=== PATIENT | male | born 1955 | race Caucasian/White ===

== ENCOUNTER → 2017-10-27 | Emergency (ER) | payer MEDICAID ==
[~2017-10-27] VITALS: Ht 177.8 cm; Wt 73.6 kg
[~2017-10-27] MED LIST: BACI1PAC7 TP; PANT20TA3 PO; THI100T PO
[2017-10-27 02:36] VITALS: BP 121/69
== END | disposition home or self-care (01) ==
LOC: ER 01:35
DX: S61.502A Unspecified open wound of left wrist, initial encounter (principal); I10 Essential (primary) hypertension; Z86.14 Personal history of Methicillin resistant Staphylococcus aureus infection; Z60.2 Problems related to living alone; Z59.0 Homelessness; Z87.891 Personal history of nicotine dependence; Z56.0 Unemployment, unspecified; Z79.899 Other long term (current) drug therapy; X58.XXXA Exposure to other specified factors, initial encounter; Y93.89 Activity, other specified; Y92.89 Other specified places as the place of occurrence of the external cause; Y99.8 Other external cause status
CPT/HCPCS: 99284

== ENCOUNTER 2017-11-12 18:25 | Emergency (ER) | payer MEDICAID ==
[~2017-11-12] VITALS: Ht 179.1 cm; Wt 72.7 kg
[~2017-11-12 18:25] MED LIST changes: -BACI1PAC7 TP
[2017-11-12 21:33] VITALS: BP 127/83
[2017-11-12 22:09] LABS: BASOPHILS # (AUTO) 0.1 X10'3 (0-0.2); EOSINOPHILS # (AUTO) 0.2 X10'3 (0-0.9); EOSINOPHILS % (AUTO) 1.9 % (0-6); HEMATOCRIT 39.8 % (42.0-52.0); HEMOGLOBIN 13.7 g/dl (14.0-17.9); LYMPHOCYTES # (AUTO) 2.7 X10'3 (1.1-4.8); LYMPHOCYTES % (AUTO) 28.9 % (21-51); MEAN CORPUSCULAR HGB CONC 34.5 % (33.0-36.5); MEAN CORPUSCULAR VOLUME 95.6 FL (78-98); MEAN PLATELET VOLUME 6.9 FL (7.4-10.4); MONOCYTES % (AUTO) 10.5 % (2-12); NEUTROPHILS # (AUTO) 5.4 X10'3 (1.8-7.7); NEUTROPHILS % (AUTO) 57.7 % (42-75); PLATELET COUNT 281 X10'3 (140-440); RED BLOOD COUNT 4.16 X10'6 (4.70-6.10); RED CELL DISTRIBUTION WIDTH 13.3 % (11.5-14.5); WHITE BLOOD COUNT 9.4 X10'3 (4.5-11.0)
[2017-11-12 22:19] LABS: INR 0.9 INR; PARTIAL THROMBOPLASTIN TIME 28 SECONDS (22-32); PROTHROMBIN TIME 9.6 SECONDS (9.0-12.0)
[2017-11-12 22:23] LABS: ALANINE AMINOTRANSFERASE 25 U/L (12-78); ALBUMIN 3.1 G/DL (3.4-5.0); ALBUMIN/GLOBULIN RATIO 0.7 (1.1-1.5); ALKALINE PHOSPHATASE 101 IU/L (46-116); ANION GAP 13 (8-16); ASPARTATE AMINO TRANSFERASE 24 U/L (10-37); BILIRUBIN,TOTAL 0.3 MG/DL (0.1-1.0); BLOOD UREA NITROGEN 10 MG/DL (7-18); BUN/CREATININE RATIO 11.2 (5.4-32.0); CALCIUM 8.6 MG/DL (8.5-10.1); CHLORIDE 101 MMOL/L (99-107); CREATININE 0.89 MG/DL (0.60-1.10); ETHANOL 0.143 GM/DL (0.0-0.010); GLUCOSE 91 MG/DL (70-104); POTASSIUM 3.7 MMOL/L (3.5-5.1); SODIUM 137 MMOL/L (135-145); TOTAL CARBON DIOXIDE 23.1 MMOL/L (24-32); TOTAL PROTEIN 7.6 G/DL (6.4-8.2); eGFR 87 ML/MIN
== END 2017-11-12 23:22 | disposition home or self-care (01) ==
LOC: ER 18:25
DX: F10.129 Alcohol abuse with intoxication, unspecified (principal); Y90.9 Presence of alcohol in blood, level not specified; I10 Essential (primary) hypertension; F17.200 Nicotine dependence, unspecified, uncomplicated; Z79.899 Other long term (current) drug therapy; Z56.0 Unemployment, unspecified; Z59.0 Homelessness; Z60.2 Problems related to living alone
CPT/HCPCS: 36415; 70450; 71045; 80053; 80320; 85025; 85610; 85730; 93005; 99285

== ENCOUNTER 2017-12-11 14:43 | Emergency (ER) | payer MEDICAID ==
[~2017-12-11] VITALS: Ht 177.8 cm; Wt 72.7 kg
[2017-12-11] MEDS ORDERED: thiamine 100mg/ml 2ml inj. IV ONE (14:50)
[2017-12-11] MEDS ORDERED: normal saline 1000ML IV soln IV ONE (14:50)
[2017-12-11] MEDS ORDERED: folic acid 1mg/0.2ml inj IV ONE (14:50)
[2017-12-11 15:11] LABS: BASOPHILS # (AUTO) 0.1 X10'3 (0-0.2); BASOPHILS % (AUTO) 1.2 % (0-1); EOSINOPHILS # (AUTO) 0.1 X10'3 (0-0.9); HEMATOCRIT 44.8 % (42.0-52.0); HEMOGLOBIN 15.6 g/dl (14.0-17.9); LYMPHOCYTES # (AUTO) 2.6 X10'3 (1.1-4.8); LYMPHOCYTES % (AUTO) 31.7 % (21-51); MEAN CORPUSCULAR HEMOGLOBIN 33.5 PG (27.0-31.0); MEAN CORPUSCULAR HGB CONC 34.7 % (33.0-36.5); MEAN CORPUSCULAR VOLUME 96.4 FL (78-98); MEAN PLATELET VOLUME 7.3 FL (7.4-10.4); MONOCYTES # (AUTO) 0.5 X10'3 (0-0.9); MONOCYTES % (AUTO) 6.1 % (2-12); NEUTROPHILS # (AUTO) 4.9 X10'3 (1.8-7.7); PLATELET COUNT 254 X10'3 (140-440); RED BLOOD COUNT 4.65 X10'6 (4.70-6.10); RED CELL DISTRIBUTION WIDTH 13.6 % (11.5-14.5); WHITE BLOOD COUNT 8.2 X10'3 (4.5-11.0)
[2017-12-11 15:20] LABS: ALANINE AMINOTRANSFERASE 20 U/L (12-78); ALBUMIN 3.7 G/DL (3.4-5.0); ALBUMIN/GLOBULIN RATIO 0.8 (1.1-1.5); ALKALINE PHOSPHATASE 121 IU/L (46-116); ANION GAP 11 (8-16); ASPARTATE AMINO TRANSFERASE 26 U/L (10-37); BILIRUBIN,TOTAL 0.3 MG/DL (0.1-1.0); BLOOD UREA NITROGEN 8 MG/DL (7-18); BUN/CREATININE RATIO 9.5 (5.4-32.0); CALCIUM 8.6 MG/DL (8.5-10.1); CHLORIDE 104 MMOL/L (99-107); CREATININE 0.84 MG/DL (0.60-1.10); GLUCOSE 91 MG/DL (70-104); POTASSIUM 3.8 MMOL/L (3.5-5.1); SODIUM 141 MMOL/L (135-145); TOTAL PROTEIN 8.5 G/DL (6.4-8.2); eGFR > 90 ML/MIN
[2017-12-11 15:34] LABS: ETHANOL 0.322 GM/DL (0.0-0.010)
[2017-12-11 17:39] VITALS: BP 159/101
== END 2017-12-11 17:50 | disposition home or self-care (01) ==
LOC: ER 14:43
DX: F10.129 Alcohol abuse with intoxication, unspecified (principal); I10 Essential (primary) hypertension; Z86.14 Personal history of Methicillin resistant Staphylococcus aureus infection; Z60.2 Problems related to living alone; Z59.0 Homelessness; Z56.0 Unemployment, unspecified; Z79.899 Other long term (current) drug therapy; Y90.0 Blood alcohol level of less than 20 mg/100 ml
CPT/HCPCS: 36415; 80053; 80320; 85025; 96374; 96375; 99284; J3411; J3490; J7030

== ENCOUNTER 2018-02-28 18:31 | Inpatient (IN) | payer OTHER, MEDICAID ==
[~2018-02-28] VITALS: Ht 177.8 cm; Wt 75.6 kg
[~2018-02-28 18:31] MED LIST changes: +etomidate 2mg/ml inj. ONE; +rocuronium 10mg/ml inj IV ONE
[2018-02-28] MEDS ORDERED: LORazepam 2 mg/ml vial IV ONE ×2 (18:35→21:35)
[2018-02-28] MEDS ORDERED: etomidate 2mg/ml inj. IV ONE (18:35)
[2018-02-28] MEDS ORDERED: rocuronium 10mg/ml inj IV ONE (18:35)
[2018-02-28] MEDS ORDERED: LORazepam 2 mg/ml vial ONE ×2 (18:36→18:37)
[2018-02-28] MEDS ORDERED: propofol 1000mg/100ml bottle 100 ML IV PRN (18:39)
[2018-02-28] MEDS ORDERED: MIDAZolam 5mg/ml 2ml vial IV ONE (18:40)
[2018-02-28] MEDS ORDERED: normal saline 1000ML IV soln IV ONE (18:40)
[2018-02-28] MEDS ORDERED: levetiracetam inj 1,500 MG in normal saline 100ml IV soln 85 ML IV ONE (18:41)
[2018-02-28] MEDS ORDERED: propofol 1000mg/100ml bottle 100 ML IV ONE (18:41)
[2018-02-28] MEDS ORDERED: normal saline 1000ML IV soln IVB ONE (19:00)
[2018-02-28] MEDS ORDERED: BUPIVAcaine 0.5% inj/PF 30 ml vial IJ ONE (19:00)
[2018-02-28 19:15] LABS: ABG BASE EXCESS -15.2 mmol/L (-2.0-3.0); ABG HCO3 15.4 mmol/L (22.0-26.0); ABG OXYGEN SATURATION 99.4 % (95-98); ABG PCO2 (T) 57.6 mmHg (35.0-48.0); ABG PO2 (T) 412.4 mmHg (83-108); ALLEN'S TEST Positive; FCOHb 0.1 % (0.5-1.5); FMetHb 0.5 % (0.3-1.12); FO2Hb 98.8 % (94-100); MINUTE VOLUME 10 L/min; PATIENT TEMPERATURE 37.6; PEEP 5 cm H2O; RESPIRATORY RATE 18 b/min; RESPIRATORY RATE (OBSERVED) 18 b/min; TIDAL VOLUME 550 mL; TOTAL HEMOGLOBIN 13.8 G/dl (14.0-18.0)
[2018-02-28 19:19] LABS: BASOPHILS % (AUTO) 0.3 % (0-1); EOSINOPHILS # (AUTO) 0.2 X10'3 (0-0.9); EOSINOPHILS % (AUTO) 1.7 % (0-6); HEMATOCRIT 42.2 % (42.0-52.0); HEMOGLOBIN 14.5 g/dl (14.0-17.9); LYMPHOCYTES % (AUTO) 41.8 % (21-51); MEAN CORPUSCULAR HEMOGLOBIN 33.6 PG (27.0-31.0); MEAN CORPUSCULAR HGB CONC 34.3 % (33.0-36.5); MEAN CORPUSCULAR VOLUME 98.2 FL (78-98); MEAN PLATELET VOLUME 9.2 FL (7.4-10.4); NEUTROPHILS % (AUTO) 49.2 % (42-75); PLATELET COUNT 265 X10'3 (140-440); RED CELL DISTRIBUTION WIDTH 12.4 % (11.5-14.5); WHITE BLOOD COUNT 14.3 X10'3 (4.5-11.0)
[2018-02-28 19:27] LABS: ALANINE AMINOTRANSFERASE 23 U/L (12-78); ALBUMIN 4.2 G/DL (3.4-5.0); ALBUMIN/GLOBULIN RATIO 1.1 (1.1-1.5); ALKALINE PHOSPHATASE 75 IU/L (46-116); ANION GAP 21 (8-16); ASPARTATE AMINO TRANSFERASE 19 U/L (10-37); BILIRUBIN,TOTAL 0.4 MG/DL (0.1-1.0); BLOOD UREA NITROGEN 13 MG/DL (7-18); BUN/CREATININE RATIO 8.1 (5.4-32.0); CALCIUM 8.9 MG/DL (8.5-10.1); CHLORIDE 95 MMOL/L (99-107); ETHANOL < 0.010 GM/DL (0.0-0.010); MAGNESIUM 2.1 MG/DL (1.5-2.4); POTASSIUM 3.5 MMOL/L (3.5-5.1); SODIUM 133 MMOL/L (135-145); TOTAL CARBON DIOXIDE 16.8 MMOL/L (24-32); TOTAL PROTEIN 7.9 G/DL (6.4-8.2); eGFR 44 ML/MIN
[2018-02-28 19:37] LABS: GLUCOSE 227 MG/DL (70-104)
[2018-02-28] MEDS ORDERED: midazolam 100mg in NS 100ml 100 ML IV PRN (20:08)
[2018-02-28] MEDS ORDERED: FENTANYL-0.9 % NACL/PF 100 ML IV PRN (20:08)
[2018-02-28] MEDS ORDERED: potassium Cl 40MEQ/250ML bag 250 ML IV PRN (20:10)
[2018-02-28] MEDS ORDERED: ipratropium/albuterol 3ml nebule NEB PRN (20:10)
[2018-02-28] MEDS ORDERED: acetaminophen 325mg tablet PO PRN (20:10)
[2018-02-28] MEDS ORDERED: ondansetron/PF 4mg/2ml inj IV PRN (20:10)
[2018-02-28] MEDS ORDERED: magnesium hydroxide 30ml (MOM) UD suspension PO PRN (20:10)
[2018-02-28] MEDS ORDERED: potassium Cl 20 mEq SR tablet PO PRN (20:10)
[2018-02-28] MEDS: K, MAG and/or Phos replacement - Verify level? MC SCH (20:10)
[2018-02-28 20:17] LABS: URINE AMPHETAMINE SCREEN NEGATIVE (Neg); URINE BARBITUATE SCREEN NEGATIVE (Neg); URINE BENZODIAZEPINES SCREEN POSITIVE (Neg); URINE CANNABINOID SCREEN NEGATIVE (Neg); URINE COCAINE SCREEN NEGATIVE (Neg); URINE METHADONE SCREEN NEGATIVE (Neg); URINE OPIATE SCREEN NEGATIVE (Neg); URINE PHENCYCLIDINE SCREEN NEGATIVE (Neg)
[2018-02-28 20:18] LABS: CKMB RELATIVE INDEX 1.1 RATIO (0-2.5); CREATINE KINASE 102 U/L (39-308)
[2018-02-28] MEDS ORDERED: NO HOME MEDS (20:36)
[2018-02-28] MEDS: normal saline 1000ml 1,000 ML IV SCH ×2 (21:06→22:32)
[2018-02-28 22:00] VITALS: BP 145/78
[2018-02-28 22:31] LABS: GLUCOSE,CSF 74 MG/DL (40-75); TOTAL PROTEIN,CSF 65 MG/DL (30-60)
[2018-02-28 22:37] LABS: COLOR,URINE YELLOW (Yellow); GLUCOSE, URINE NEGATIVE (Neg); KETONES,URINE NEGATIVE (Neg); LEUKOCYTE ESTERASE ,URINE NEGATIVE (Neg); NITRITES, URINE NEGATIVE (Neg); OCCULT BLOOD,URINE SMALL (Neg); PH,URINE 5.5 (4.8-8.0); PROTEIN,URINE 30 mg/dl (Neg); UROBILINOGEN,URINE 0.2 E.U/dL (0.2-1.0)
[2018-02-28 22:43] LABS: APPEARANCE,CSF CLEAR; CSF SUPERNATANT COLOR COLORLESS
[2018-02-28 22:44] LABS: CSF RBC 3 /CU MM (0); CSF VOLUME 31 ML; CSF WBC CT 0 /CU MM (0-5); TUBE# COUNTED 1
[2018-02-28 22:45] LABS: APPEARANCE,CSF CLEAR; CSF SUPERNATANT COLOR COLORLESS; CSF VOLUME 31 ML
[2018-02-28 22:46] LABS: CSF RBC 2 /CU MM (0); CSF WBC CT 1 /CU MM (0-5); TUBE# COUNTED 4
[2018-02-28 22:48] LABS: CLARITY,URINE CLEAR (Clear); UA COLLECTION TYPE FOLEY CATH
[2018-02-28 22:49] LABS: BACTERIA,URINE FEW /HPF (Neg); RBC,URINE 0-2 /HPF (0-2); SQUAMOUS EPITHELIAL CELL,UR FEW /LPF (FEW); WBC,URINE NONE SEEN /HPF (0-4)
[2018-02-28 23:00] VITALS: BP 142/83
[2018-03-01] VITALS (22 sets, daily range): BP systolic 100–145; BP diastolic 66–87
[2018-03-01 03:32] LABS: ALANINE AMINOTRANSFERASE 8 U/L (12-78); ALBUMIN 3.5 G/DL (3.4-5.0); ALBUMIN/GLOBULIN RATIO 1.1 (1.1-1.5); ALKALINE PHOSPHATASE 61 IU/L (46-116); ANION GAP 11 (8-16); ASPARTATE AMINO TRANSFERASE 20 U/L (10-37); BASOPHILS % (AUTO) 0.2 % (0-1); BILIRUBIN,TOTAL 0.6 MG/DL (0.1-1.0); BLOOD UREA NITROGEN 6 MG/DL (7-18); BUN/CREATININE RATIO 6.8 (5.4-32.0); CALCIUM 7.8 MG/DL (8.5-10.1); CHLORIDE 101 MMOL/L (99-107); CREATININE 0.88 MG/DL (0.60-1.10); EOSINOPHILS % (AUTO) 0.2 % (0-6); GLUCOSE 76 MG/DL (70-104); HEMATOCRIT 38.7 % (42.0-52.0); HEMOGLOBIN 13.7 g/dl (14.0-17.9); LYMPHOCYTES # (AUTO) 1.9 X10'3 (1.1-4.8); LYMPHOCYTES % (AUTO) 14.6 % (21-51); MAGNESIUM 1.7 MG/DL (1.5-2.4); MEAN CORPUSCULAR HEMOGLOBIN 33.7 PG (27.0-31.0); MEAN CORPUSCULAR HGB CONC 35.4 % (33.0-36.5); MEAN CORPUSCULAR VOLUME 95.2 FL (78-98); MEAN PLATELET VOLUME 8.8 FL (7.4-10.4); MONOCYTES # (AUTO) 1.3 X10'3 (0-0.9); MONOCYTES % (AUTO) 10.2 % (2-12); NEUTROPHILS # (AUTO) 9.6 X10'3 (1.8-7.7); NEUTROPHILS % (AUTO) 74.8 % (42-75); PHOSPHORUS 2.1 MG/DL (2.3-4.5); PLATELET COUNT 221 X10'3 (140-440); RED BLOOD COUNT 4.07 X10'6 (4.70-6.10); RED CELL DISTRIBUTION WIDTH 12.2 % (11.5-14.5); SODIUM 136 MMOL/L (135-145); TOTAL CARBON DIOXIDE 23.6 MMOL/L (24-32); TOTAL PROTEIN 6.8 G/DL (6.4-8.2); WHITE BLOOD COUNT 12.8 X10'3 (4.5-11.0); eGFR 88 ML/MIN
[2018-03-01 03:36] LABS: POTASSIUM 2.3 MMOL/L (3.5-5.1)
[2018-03-01] MEDS ORDERED: potassium Cl 40MEQ/250ML bag 250 ML IV ONE (04:01)
[2018-03-01 04:25] LABS: ABG BASE EXCESS 0.9 mmol/L (-2.0-3.0); ABG HCO3 21.8 mmol/L (22.0-26.0); ABG OXYGEN SATURATION 98.4 % (95-98); ABG PCO2 (T) 26.9 mmHg (35.0-48.0); ABG PO2 (T) 121.6 mmHg (83-108); ALLEN'S TEST Positive; FCOHb 0.3 % (0.5-1.5); FMetHb 0.2 % (0.3-1.12); FO2Hb 97.9 % (94-100); MINUTE VOLUME 11 L/min; PATIENT TEMPERATURE 37.8; PEEP 5 cm H2O; RESPIRATORY RATE 20 b/min; RESPIRATORY RATE (OBSERVED) 20 b/min; TIDAL VOLUME 550 mL; TOTAL HEMOGLOBIN 14.5 G/dl (14.0-18.0)
[2018-03-01] MEDS: K, MAG and/or Phos replacement - Verify level? MC SCH (08:00)
[2018-03-01] MEDS: enoxaparin 40mg/0.4ml syringe SUBCUT SCH (08:39)
[2018-03-01] MEDS: pantoprazole 40 MG vial IV SCH (08:39)
[2018-03-01] MEDS: levetiracetam inj 750 MG in normal saline 100ml IV soln 92.5 ML IV SCH ×2 (11:07→20:17)
[2018-03-01] MEDS: potassium Cl 40MEQ/250ML bag 250 ML IV SCH (13:47)
[2018-03-01] MEDS ORDERED: VANCOMYCIN LEVEL IV ONE (14:30)
[2018-03-01] MEDS: vancomycin/NS 1 GM ADD-VANTAGE 250 ML IV SCH (14:34)
[2018-03-01] MEDS: piperacillin/tazo 3.375gm/50ml 50 ML IV SCH ×2 (16:24→20:41)
[2018-03-01] MEDS: normal saline 1000ml 1,000 ML IV SCH (16:25)
[2018-03-02] VITALS (24 sets, daily range): BP systolic 123–166; BP diastolic 69–96
[2018-03-02] MEDS: mineral oil/petrolatum ophthal oint EACHEYE SCH ×4 (02:00→20:00)
[2018-03-02] MEDS ORDERED: dextrose 50%-water 50ml dispensing syringe IV ONE (02:39)
[2018-03-02] MEDS: piperacillin/tazo 3.375gm/50ml 50 ML IV SCH ×4 (02:47→20:31)
[2018-03-02] MEDS: normal saline 1000ml 1,000 ML IV SCH ×2 (02:49→12:18)
[2018-03-02 03:14] LABS: BASOPHILS % (AUTO) 0.2 % (0-1); EOSINOPHILS # (AUTO) 0.1 X10'3 (0-0.9); EOSINOPHILS % (AUTO) 0.7 % (0-6); HEMATOCRIT 40.2 % (42.0-52.0); HEMOGLOBIN 13.8 g/dl (14.0-17.9); LYMPHOCYTES # (AUTO) 1.9 X10'3 (1.1-4.8); LYMPHOCYTES % (AUTO) 14.5 % (21-51); MEAN CORPUSCULAR HEMOGLOBIN 33.4 PG (27.0-31.0); MEAN CORPUSCULAR HGB CONC 34.3 % (33.0-36.5); MEAN CORPUSCULAR VOLUME 97.6 FL (78-98); MEAN PLATELET VOLUME 8.9 FL (7.4-10.4); MONOCYTES # (AUTO) 1.3 X10'3 (0-0.9); MONOCYTES % (AUTO) 9.6 % (2-12); NEUTROPHILS # (AUTO) 10.1 X10'3 (1.8-7.7); PLATELET COUNT 205 X10'3 (140-440); RED BLOOD COUNT 4.12 X10'6 (4.70-6.10); RED CELL DISTRIBUTION WIDTH 12.6 % (11.5-14.5); WHITE BLOOD COUNT 13.4 X10'3 (4.5-11.0)
[2018-03-02] MEDS: vancomycin/NS 1 GM ADD-VANTAGE 250 ML IV SCH ×3 (03:25→15:28)
[2018-03-02 03:28] LABS: ALANINE AMINOTRANSFERASE 15 U/L (12-78); ALBUMIN 3.1 G/DL (3.4-5.0); ALBUMIN/GLOBULIN RATIO 0.9 (1.1-1.5); ALKALINE PHOSPHATASE 53 IU/L (46-116); ANION GAP 12 (8-16); ASPARTATE AMINO TRANSFERASE 18 U/L (10-37); BILIRUBIN,TOTAL 0.7 MG/DL (0.1-1.0); BLOOD UREA NITROGEN 4 MG/DL (7-18); BUN/CREATININE RATIO 4.8 (5.4-32.0); CALCIUM 8.2 MG/DL (8.5-10.1); CHLORIDE 108 MMOL/L (99-107); CREATININE 0.84 MG/DL (0.60-1.10); GLUCOSE 65 MG/DL (70-104); MAGNESIUM 1.7 MG/DL (1.5-2.4); PHOSPHORUS 2.7 MG/DL (2.3-4.5); POTASSIUM 3.3 MMOL/L (3.5-5.1); SODIUM 141 MMOL/L (135-145); TOTAL CARBON DIOXIDE 20.9 MMOL/L (24-32); TOTAL PROTEIN 6.6 G/DL (6.4-8.2); eGFR > 90 ML/MIN
[2018-03-02 03:36] LABS: ABG BASE EXCESS -4.2 mmol/L (-2.0-3.0); ABG HCO3 20.2 mmol/L (22.0-26.0); ABG OXYGEN SATURATION 96.8 % (95-98); ABG PCO2 (T) 35.3 mmHg (35.0-48.0); ABG PH (T) 7.377 (7.350-7.450); ABG PO2 (T) 86.9 mmHg (83-108); ALLEN'S TEST Positive; FCOHb 0.1 % (0.5-1.5); FMetHb 0.3 % (0.3-1.12); FO2Hb 96.4 % (94-100); MINUTE VOLUME 6 L/min; PATIENT TEMPERATURE 37.1; RESPIRATORY RATE (OBSERVED) 10 b/min; TOTAL HEMOGLOBIN 14.6 G/dl (14.0-18.0)
[2018-03-02] MEDS ORDERED: dextrose 50%-water 50ml dispensing syringe IV PRN ×2 (04:20)
[2018-03-02] MEDS ORDERED: dextrose ORAL solution 15 GM/59 ML bottle PO PRN ×2 (04:20)
[2018-03-02] MEDS ORDERED: glucagon, human recombinant 1mg kit SUBCUT PRN (04:20)
[2018-03-02] MEDS ORDERED: potassium Cl 40MEQ/250ML bag 250 ML IV ONE (04:43)
[2018-03-02] MEDS: potassium Cl 40MEQ/250ML bag 250 ML IV SCH (04:49)
[2018-03-02] MEDS: pantoprazole 40 MG vial IV SCH (07:07)
[2018-03-02] MEDS: levetiracetam inj 750 MG in normal saline 100ml IV soln 92.5 ML IV SCH ×2 (07:07→20:31)
[2018-03-02] MEDS: enoxaparin 40mg/0.4ml syringe SUBCUT SCH (07:08)
[2018-03-02] MEDS: K, MAG and/or Phos replacement - Verify level? MC SCH (07:17)
[2018-03-02] MEDS ORDERED: ipratropium/albuterol 3ml nebule NEB PRN (10:25)
[2018-03-02] MEDS ORDERED: racepinephrine 11.25mg/0.5ml nebule NEB PRN (10:25)
[2018-03-02] MEDS ORDERED: VANCOMYCIN LEVEL IV ONE (14:30)
[2018-03-02] MEDS: ipratropium/albuterol 3ml nebule NEB SCH ×2 (14:49→20:28)
[2018-03-02] MEDS: lactobacillus rhamnosus 10,000 MMU CELLS/CAPSULE PO SCH (20:31)
[2018-03-02] MEDS ORDERED: vancomycin inj 1,250 MG in normal saline 250ml IV soln 250 ML IV SCH (23:00)
[2018-03-03] VITALS (24 sets, daily range): BP systolic 108–161; BP diastolic 64–98
[2018-03-03] MEDS: mineral oil/petrolatum ophthal oint EACHEYE SCH ×2 (02:00→08:00)
[2018-03-03] MEDS: piperacillin/tazo 3.375gm/50ml 50 ML IV SCH ×2 (02:35→08:21)
[2018-03-03] MEDS: ipratropium/albuterol 3ml nebule NEB SCH ×2 (03:00→07:28)
[2018-03-03 05:14] LABS: BASOPHILS # (AUTO) 0.1 X10'3 (0-0.2); BASOPHILS % (AUTO) 0.6 % (0-1); EOSINOPHILS # (AUTO) 0.2 X10'3 (0-0.9); EOSINOPHILS % (AUTO) 1.5 % (0-6); HEMATOCRIT 38.2 % (42.0-52.0); HEMOGLOBIN 13.3 g/dl (14.0-17.9); LYMPHOCYTES # (AUTO) 2.3 X10'3 (1.1-4.8); LYMPHOCYTES % (AUTO) 21.7 % (21-51); MEAN CORPUSCULAR HEMOGLOBIN 33.7 PG (27.0-31.0); MEAN CORPUSCULAR HGB CONC 34.7 % (33.0-36.5); MEAN CORPUSCULAR VOLUME 97.2 FL (78-98); MONOCYTES # (AUTO) 1.1 X10'3 (0-0.9); MONOCYTES % (AUTO) 10.8 % (2-12); NEUTROPHILS # (AUTO) 6.8 X10'3 (1.8-7.7); NEUTROPHILS % (AUTO) 65.4 % (42-75); PLATELET COUNT 212 X10'3 (140-440); RED BLOOD COUNT 3.93 X10'6 (4.70-6.10); RED CELL DISTRIBUTION WIDTH 12.7 % (11.5-14.5); WHITE BLOOD COUNT 10.4 X10'3 (4.5-11.0)
[2018-03-03 05:42] LABS: ALANINE AMINOTRANSFERASE 13 U/L (12-78); ALBUMIN 2.8 G/DL (3.4-5.0); ALBUMIN/GLOBULIN RATIO 0.8 (1.1-1.5); ALKALINE PHOSPHATASE 67 IU/L (46-116); ANION GAP 8 (8-16); ASPARTATE AMINO TRANSFERASE 17 U/L (10-37); BILIRUBIN,TOTAL 0.5 MG/DL (0.1-1.0); BLOOD UREA NITROGEN 3 MG/DL (7-18); BUN/CREATININE RATIO 3.4 (5.4-32.0); CALCIUM 8.2 MG/DL (8.5-10.1); CHLORIDE 108 MMOL/L (99-107); CREATININE 0.89 MG/DL (0.60-1.10); GLUCOSE 113 MG/DL (70-104); MAGNESIUM 1.5 MG/DL (1.5-2.4); PHOSPHORUS 2.8 MG/DL (2.3-4.5); POTASSIUM 3.2 MMOL/L (3.5-5.1); SODIUM 141 MMOL/L (135-145); TOTAL CARBON DIOXIDE 25.4 MMOL/L (24-32); TOTAL PROTEIN 6.4 G/DL (6.4-8.2); eGFR 87 ML/MIN
[2018-03-03] MEDS: normal saline 1000ml 1,000 ML IV SCH ×2 (06:23→08:08)
[2018-03-03] MEDS: K, MAG and/or Phos replacement - Verify level? MC SCH (08:00)
[2018-03-03] MEDS: pantoprazole 40 MG vial IV SCH (08:19)
[2018-03-03] MEDS: levetiracetam inj 750 MG in normal saline 100ml IV soln 92.5 ML IV SCH (08:19)
[2018-03-03] MEDS: lactobacillus rhamnosus 10,000 MMU CELLS/CAPSULE PO SCH ×2 (08:20→20:27)
[2018-03-03] MEDS: enoxaparin 40mg/0.4ml syringe SUBCUT SCH (08:20)
[2018-03-03] MEDS: potassium Cl 20 mEq SR tablet PO PRN ×2 (08:22→12:23)
[2018-03-03] MEDS ORDERED: vancomycin inj 1,250 MG in normal saline 250ml IV soln 250 ML IV SCH (11:00)
[2018-03-03] MEDS: levoFLOXACIN 750MG TABLET PO SCH (11:28)
[2018-03-03] MEDS: levetiracetam 250mg tablet PO SCH (20:27)
[2018-03-03] MEDS ORDERED: VANCOMYCIN LEVEL IV ONE (22:30)
[2018-03-03] MEDS ORDERED: diphenhydrAMINE 25mg capsule PO PRN (22:35)
[2018-03-04] VITALS (16 sets, daily range): BP systolic 107–152; BP diastolic 67–92
[2018-03-04 05:27] LABS: BASOPHILS % (AUTO) 0.5 % (0-1); EOSINOPHILS # (AUTO) 0.3 X10'3 (0-0.9); EOSINOPHILS % (AUTO) 3.7 % (0-6); HEMATOCRIT 37.9 % (42.0-52.0); HEMOGLOBIN 13.3 g/dl (14.0-17.9); LYMPHOCYTES # (AUTO) 2.2 X10'3 (1.1-4.8); LYMPHOCYTES % (AUTO) 26.3 % (21-51); MEAN CORPUSCULAR HEMOGLOBIN 33.6 PG (27.0-31.0); MEAN CORPUSCULAR VOLUME 95.8 FL (78-98); MEAN PLATELET VOLUME 8.7 FL (7.4-10.4); MONOCYTES # (AUTO) 0.9 X10'3 (0-0.9); MONOCYTES % (AUTO) 10.9 % (2-12); NEUTROPHILS % (AUTO) 58.6 % (42-75); PLATELET COUNT 231 X10'3 (140-440); RED BLOOD COUNT 3.95 X10'6 (4.70-6.10); RED CELL DISTRIBUTION WIDTH 12.3 % (11.5-14.5); WHITE BLOOD COUNT 8.6 X10'3 (4.5-11.0)
[2018-03-04 05:34] LABS: ALANINE AMINOTRANSFERASE 18 U/L (12-78); ALBUMIN/GLOBULIN RATIO 0.8 (1.1-1.5); ALKALINE PHOSPHATASE 45 IU/L (46-116); ANION GAP 8 (8-16); ASPARTATE AMINO TRANSFERASE 13 U/L (10-37); BILIRUBIN,TOTAL 0.3 MG/DL (0.1-1.0); BLOOD UREA NITROGEN 6 MG/DL (7-18); BUN/CREATININE RATIO 5.4 (5.4-32.0); CALCIUM 8.8 MG/DL (8.5-10.1); CHLORIDE 105 MMOL/L (99-107); CREATININE 1.11 MG/DL (0.60-1.10); GLUCOSE 90 MG/DL (70-104); MAGNESIUM 1.4 MG/DL (1.5-2.4); PHOSPHORUS 3.8 MG/DL (2.3-4.5); POTASSIUM 3.6 MMOL/L (3.5-5.1); SODIUM 142 MMOL/L (135-145); TOTAL CARBON DIOXIDE 29.1 MMOL/L (24-32); eGFR 68 ML/MIN
[2018-03-04] MEDS: K, MAG and/or Phos replacement - Verify level? MC SCH (08:00)
[2018-03-04] MEDS: pantoprazole 40mg Tablet.DR PO SCH (08:15)
[2018-03-04] MEDS: lactobacillus rhamnosus 10,000 MMU CELLS/CAPSULE PO SCH ×2 (08:15→20:50)
[2018-03-04] MEDS: levetiracetam 250mg tablet PO SCH ×2 (08:15→20:50)
[2018-03-04] MEDS: enoxaparin 40mg/0.4ml syringe SUBCUT SCH (08:15)
[2018-03-04] MEDS: magnesium Cl slow-release 64mg tablet PO PRN ×2 (10:18→17:59)
[2018-03-04] MEDS: levoFLOXACIN 750MG TABLET PO SCH (10:18)
[2018-03-04] MEDS ORDERED: VANCOMYCIN LEVEL IV ONE (10:30)
[2018-03-04 17:39] LABS: HSV 1 PCR Negative (Negative); HSV 2 PCR Negative (Negative)
[2018-03-05 03:00] VITALS: BP 116/78
[2018-03-05 06:12] LABS: BASOPHILS % (AUTO) 0.4 % (0-1); EOSINOPHILS # (AUTO) 0.4 X10'3 (0-0.9); EOSINOPHILS % (AUTO) 4.7 % (0-6); HEMATOCRIT 39.8 % (42.0-52.0); HEMOGLOBIN 13.6 g/dl (14.0-17.9); LYMPHOCYTES # (AUTO) 2.5 X10'3 (1.1-4.8); LYMPHOCYTES % (AUTO) 32.9 % (21-51); MEAN CORPUSCULAR HEMOGLOBIN 33.3 PG (27.0-31.0); MEAN CORPUSCULAR HGB CONC 34.2 % (33.0-36.5); MEAN CORPUSCULAR VOLUME 97.5 FL (78-98); MONOCYTES % (AUTO) 12.5 % (2-12); NEUTROPHILS # (AUTO) 3.8 X10'3 (1.8-7.7); NEUTROPHILS % (AUTO) 49.5 % (42-75); PLATELET COUNT 263 X10'3 (140-440); RED BLOOD COUNT 4.08 X10'6 (4.70-6.10); RED CELL DISTRIBUTION WIDTH 12.2 % (11.5-14.5); WHITE BLOOD COUNT 7.7 X10'3 (4.5-11.0)
[2018-03-05 06:22] LABS: ALANINE AMINOTRANSFERASE 15 U/L (12-78); ALBUMIN 3.1 G/DL (3.4-5.0); ALBUMIN/GLOBULIN RATIO 0.8 (1.1-1.5); ALKALINE PHOSPHATASE 51 IU/L (46-116); ANION GAP 10 (8-16); ASPARTATE AMINO TRANSFERASE 17 U/L (10-37); BILIRUBIN,TOTAL 0.3 MG/DL (0.1-1.0); BLOOD UREA NITROGEN 6 MG/DL (7-18); BUN/CREATININE RATIO 7.1 (5.4-32.0); CALCIUM 9.1 MG/DL (8.5-10.1); CHLORIDE 103 MMOL/L (99-107); CREATININE 0.85 MG/DL (0.60-1.10); GLUCOSE 88 MG/DL (70-104); MAGNESIUM 1.7 MG/DL (1.5-2.4); PHOSPHORUS 4.7 MG/DL (2.3-4.5); POTASSIUM 3.5 MMOL/L (3.5-5.1); SODIUM 140 MMOL/L (135-145); TOTAL CARBON DIOXIDE 27.4 MMOL/L (24-32); TOTAL PROTEIN 7.2 G/DL (6.4-8.2); eGFR > 90 ML/MIN
[2018-03-05 06:30] VITALS: BP 127/80
[2018-03-05] MEDS: K, MAG and/or Phos replacement - Verify level? MC SCH (08:00)
[2018-03-05] MEDS: enoxaparin 40mg/0.4ml syringe SUBCUT SCH (09:08)
[2018-03-05] MEDS: lactobacillus rhamnosus 10,000 MMU CELLS/CAPSULE PO SCH ×2 (09:09→19:53)
[2018-03-05] MEDS: levetiracetam 250mg tablet PO SCH ×2 (09:09→19:54)
[2018-03-05] MEDS: pantoprazole 40mg Tablet.DR PO SCH (09:09)
[2018-03-05 11:00] VITALS: BP 120/90
[2018-03-05] MEDS: levoFLOXACIN 750MG TABLET PO SCH (11:17)
[2018-03-05] MEDS: acetaminophen 325mg tablet PO PRN (14:16)
[2018-03-05 15:00] VITALS: BP 136/77
[2018-03-05 19:00] VITALS: BP 135/91
[2018-03-05] MEDS: clotrimazole topical cream 15gm tube TP SCH (19:54)
[2018-03-05 23:00] VITALS: BP 126/81
[2018-03-06 02:00] VITALS: BP 131/83
[2018-03-06 05:10] LABS: BASOPHILS # (AUTO) 0.1 X10'3 (0-0.2); EOSINOPHILS # (AUTO) 0.3 X10'3 (0-0.9); HEMATOCRIT 40.8 % (42.0-52.0); HEMOGLOBIN 14.1 g/dl (14.0-17.9); LYMPHOCYTES # (AUTO) 2.5 X10'3 (1.1-4.8); LYMPHOCYTES % (AUTO) 31.4 % (21-51); MEAN CORPUSCULAR HEMOGLOBIN 33.3 PG (27.0-31.0); MEAN CORPUSCULAR HGB CONC 34.5 % (33.0-36.5); MEAN CORPUSCULAR VOLUME 96.4 FL (78-98); MEAN PLATELET VOLUME 8.2 FL (7.4-10.4); MONOCYTES # (AUTO) 0.8 X10'3 (0-0.9); MONOCYTES % (AUTO) 10.1 % (2-12); NEUTROPHILS # (AUTO) 4.3 X10'3 (1.8-7.7); NEUTROPHILS % (AUTO) 53.5 % (42-75); PLATELET COUNT 292 X10'3 (140-440); RED BLOOD COUNT 4.23 X10'6 (4.70-6.10); RED CELL DISTRIBUTION WIDTH 12.4 % (11.5-14.5)
[2018-03-06 05:34] LABS: ALANINE AMINOTRANSFERASE 16 U/L (12-78); ALBUMIN 3.3 G/DL (3.4-5.0); ALBUMIN/GLOBULIN RATIO 0.8 (1.1-1.5); ALKALINE PHOSPHATASE 52 IU/L (46-116); ANION GAP 8 (8-16); ASPARTATE AMINO TRANSFERASE 16 U/L (10-37); BILIRUBIN,TOTAL 0.3 MG/DL (0.1-1.0); BLOOD UREA NITROGEN 6 MG/DL (7-18); BUN/CREATININE RATIO 7.1 (5.4-32.0); CALCIUM 9.2 MG/DL (8.5-10.1); CHLORIDE 103 MMOL/L (99-107); CREATININE 0.84 MG/DL (0.60-1.10); GLUCOSE 95 MG/DL (70-104); MAGNESIUM 1.8 MG/DL (1.5-2.4); PHOSPHORUS 4.5 MG/DL (2.3-4.5); POTASSIUM 3.9 MMOL/L (3.5-5.1); SODIUM 138 MMOL/L (135-145); TOTAL CARBON DIOXIDE 26.6 MMOL/L (24-32); TOTAL PROTEIN 7.4 G/DL (6.4-8.2); eGFR > 90 ML/MIN
[2018-03-06 06:00] VITALS: BP 128/85
[2018-03-06] MEDS: K, MAG and/or Phos replacement - Verify level? MC SCH (08:00)
[2018-03-06] MEDS: lactobacillus rhamnosus 10,000 MMU CELLS/CAPSULE PO SCH ×2 (08:16→19:43)
[2018-03-06] MEDS: levetiracetam 250mg tablet PO SCH ×2 (08:17→19:44)
[2018-03-06] MEDS: pantoprazole 40mg Tablet.DR PO SCH (08:17)
[2018-03-06] MEDS: clotrimazole topical cream 15gm tube TP SCH ×2 (08:18→19:44)
[2018-03-06] MEDS: enoxaparin 40mg/0.4ml syringe SUBCUT SCH (08:18)
[2018-03-06 11:00] VITALS: BP 129/84
[2018-03-06] MEDS: levoFLOXACIN 750MG TABLET PO SCH (11:54)
[2018-03-06 12:02] LABS: CRYPTOCOCCUS ANTIGEN, CSF Negative (Negative)
[2018-03-06] MEDS: acetaminophen 325mg tablet PO PRN ×2 (14:35→20:58)
[2018-03-06 15:00] VITALS: BP 132/86
[2018-03-06 15:14] LABS: LYME IGG P23 AB Absent (.); LYME IGG P28 AB Absent (.); LYME IGG P30 AB Absent (.); LYME IGG P41 AB Absent (.); LYME IGG P45 AB Absent (.); LYME IGG P58 AB Absent (.); LYME IGG P66 AB Absent (.); LYME IGG P93 AB Absent (.); LYME IGG WB INTERP Negative (.); LYME IGM P23 AB Absent (.); LYME IGM P39 AB Absent (.); LYME IGM P41 AB Absent (.); LYME IGM WB INTERP Negative (.)
[2018-03-06 18:00] VITALS: BP 139/87
[2018-03-06 22:00] VITALS: BP 148/92
[2018-03-07 02:00] VITALS: BP 149/93
[2018-03-07] MEDS: acetaminophen 325mg tablet PO PRN (03:41)
[2018-03-07 04:45] LABS: BASOPHILS # (AUTO) 0.1 X10'3 (0-0.2); BASOPHILS % (AUTO) 0.8 % (0-1); EOSINOPHILS # (AUTO) 0.3 X10'3 (0-0.9); EOSINOPHILS % (AUTO) 3.5 % (0-6); HEMATOCRIT 40.6 % (42.0-52.0); HEMOGLOBIN 14.1 g/dl (14.0-17.9); LYMPHOCYTES # (AUTO) 3.2 X10'3 (1.1-4.8); LYMPHOCYTES % (AUTO) 32.8 % (21-51); MEAN CORPUSCULAR HEMOGLOBIN 33.4 PG (27.0-31.0); MEAN CORPUSCULAR HGB CONC 34.6 % (33.0-36.5); MEAN CORPUSCULAR VOLUME 96.6 FL (78-98); MONOCYTES % (AUTO) 10.7 % (2-12); NEUTROPHILS % (AUTO) 52.2 % (42-75); PLATELET COUNT 332 X10'3 (140-440); RED CELL DISTRIBUTION WIDTH 12.4 % (11.5-14.5); WHITE BLOOD COUNT 9.7 X10'3 (4.5-11.0)
[2018-03-07 05:04] LABS: ALANINE AMINOTRANSFERASE 16 U/L (12-78); ALBUMIN 3.6 G/DL (3.4-5.0); ALBUMIN/GLOBULIN RATIO 0.8 (1.1-1.5); ANION GAP 8 (8-16); ASPARTATE AMINO TRANSFERASE 12 U/L (10-37); BILIRUBIN,TOTAL 0.3 MG/DL (0.1-1.0); BLOOD UREA NITROGEN 9 MG/DL (7-18); CALCIUM 9.1 MG/DL (8.5-10.1); CHLORIDE 95 MMOL/L (99-107); GLUCOSE 91 MG/DL (70-104); MAGNESIUM 1.7 MG/DL (1.5-2.4); PHOSPHORUS 3.8 MG/DL (2.3-4.5); POTASSIUM 3.7 MMOL/L (3.5-5.1); SODIUM 131 MMOL/L (135-145); TOTAL CARBON DIOXIDE 28.2 MMOL/L (24-32); eGFR 76 ML/MIN
[2018-03-07 05:05] LABS: ALKALINE PHOSPHATASE 57 IU/L (46-116)
[2018-03-07 06:00] VITALS: BP 138/90
[2018-03-07] MEDS: K, MAG and/or Phos replacement - Verify level? MC SCH (08:00)
[2018-03-07] MEDS: pantoprazole 40mg Tablet.DR PO SCH (08:41)
[2018-03-07] MEDS: lactobacillus rhamnosus 10,000 MMU CELLS/CAPSULE PO SCH (08:41)
[2018-03-07] MEDS: levetiracetam 250mg tablet PO SCH (08:41)
[2018-03-07] MEDS: enoxaparin 40mg/0.4ml syringe SUBCUT SCH (08:42)
[2018-03-07] MEDS: clotrimazole topical cream 15gm tube TP SCH (08:42)
[2018-03-07] MEDS ORDERED: LEVO750T46 PO (09:23)
[2018-03-07] MEDS ORDERED: LEVE250T PO (09:23)
[2018-03-07 11:00] VITALS: BP 127/90
[2018-03-07] MEDS: levoFLOXACIN 750MG TABLET PO SCH (12:03)
[2018-03-10 10:15] LABS: CSF WEST NILE VIRUS, IGG Positive (Negative)
[2018-03-10 11:12] LABS: VDRL, CSF Non Reactive (Non Rea:<1:1)
[2018-03-10 13:26] LABS: CSF WEST NILE VIRUS, IGM Negative (Negative)
== END 2018-03-07 13:15 | disposition home or self-care (01) | DRG 871 ==
LOC: ER 18:32 → EEVIPCON 18:32 → ED HOLD 20:08 → CICU 2S 21:43 → PCU 3S 03-04 12:19
PROVIDERS: ATTEND Internal Medicine
PROC: 5A1935Z Respiratory Ventilation, Less than 24 Consecutive Hours (ICD-10-PCS; principal; 2018-02-28)
PROC: 0BH17EZ Insertion of Endotracheal Airway into Trachea, Via Natural or Artificial Opening (ICD-10-PCS; 2018-02-28)
PROC: 02HV33Z Insertion of Infusion Device into Superior Vena Cava, Percutaneous Approach (ICD-10-PCS; 2018-02-28)
PROC: B548ZZA Ultrasonography of Superior Vena Cava, Guidance (ICD-10-PCS; 2018-02-28)
PROC: 009U3ZZ Drainage of Spinal Canal, Percutaneous Approach (ICD-10-PCS; 2018-02-28)
PROC: 5A09357 Assistance with Respiratory Ventilation, Less than 24 Consecutive Hours, Continuous Positive Airway Pressure (ICD-10-PCS; 2018-03-01)
PROC: 5A1935Z Respiratory Ventilation, Less than 24 Consecutive Hours (ICD-10-PCS; 2018-03-01)
DX: A41.9 Sepsis, unspecified organism (principal); J96.00 Acute respiratory failure, unspecified whether with hypoxia or hypercapnia; J18.9 Pneumonia, unspecified organism; E87.2 Acidosis; E87.3 Alkalosis; I10 Essential (primary) hypertension; G40.901 Epilepsy, unspecified, not intractable, with status epilepticus; Z86.14 Personal history of Methicillin resistant Staphylococcus aureus infection; Z82.49 Family history of ischemic heart disease and other diseases of the circulatory system; Z86.73 Personal history of transient ischemic attack (TIA), and cerebral infarction without residual deficits; Z79.899 Other long term (current) drug therapy; Z56.0 Unemployment, unspecified
CPT/HCPCS: 36415; 36556; 36600; 62270; 70450; 71045; 80053; 80202; 80305; 80320; 81001; 82550; 82553; 82803; 82945; 82948; 83605; 83735; 84100; 84132; 84145; 84157; 85018; 85025; 86592; 86617; 86788; 86789; 87015; 87040; 87070; 87077; 87186; 87210; 87529; 87899; 89051; 92616; 93005; 94002; 94003; 94640; 94667; 94760; 95816; 96375; 97116; 97161; 97530; 99285; A6213; A6257; A6449; C1751; C1758; C9113; J1650; J1953; J2060; J2250; J2543; J2704; J3370; J3480; J3490; J7030; Q0163

== ENCOUNTER → 2018-05-17 | Emergency (ER) | payer MEDICAID, OTHER ==
[~2018-05-17] VITALS: Ht 177.8 cm; Wt 75.0 kg
[~2018-05-17] MED LIST changes: +LEVE250T PO; +LEVO750T46 PO; +NO HOME MEDS; -PANT20TA3 PO; -THI100T PO; -etomidate 2mg/ml inj. ONE; -rocuronium 10mg/ml inj IV ONE
[2018-05-17 16:47] VITALS: BP 142/75
== END | disposition home or self-care (01) ==
LOC: ER 15:36
DX: F10.129 Alcohol abuse with intoxication, unspecified (principal); I10 Essential (primary) hypertension; Z79.2 Long term (current) use of antibiotics; Z79.899 Other long term (current) drug therapy; Y90.9 Presence of alcohol in blood, level not specified; Z60.2 Problems related to living alone; Z56.0 Unemployment, unspecified
CPT/HCPCS: 82948; 99284

== ENCOUNTER 2019-02-14 16:02 | Emergency (ER) | payer OTHER ==
[~2019-02-14] VITALS: Ht 177.8 cm; Wt 75.0 kg
[~2019-02-14 16:02] MED LIST changes: +LACT1CAP26 PO; -LEVO750T46 PO; -NO HOME MEDS; +thiamine tablet PO
[2019-02-14 17:03] LABS: EOSINOPHILS % (AUTO) 0.3 % (0-6); HEMATOCRIT 38.6 % (42.0-52.0); LYMPHOCYTES # (AUTO) 2.7 X10'3 (1.1-4.8); MEAN CORPUSCULAR HGB CONC 33.6 g/dL (33.0-36.5); MEAN PLATELET VOLUME 7.4 FL (7.4-10.4); MONOCYTES # (AUTO) 0.6 X10'3 (0-0.9); NEUTROPHILS # (AUTO) 4.3 X10'3 (1.8-7.7)
[2019-02-14 17:05] LABS: BASOPHILS # (AUTO) 0.1 X10'3 (0-0.2); BASOPHILS % (AUTO) 0.8 % (0-1); LYMPHOCYTES % (AUTO) 35.1 % (21-51); MEAN CORPUSCULAR HEMOGLOBIN 31.9 PG (27.0-31.0); MEAN CORPUSCULAR VOLUME 94.9 FL (78-98); MONOCYTES % (AUTO) 7.8 % (2-12); PLATELET COUNT 238 X10'3 (140-440); RED BLOOD COUNT 4.07 X10'6 (4.70-6.10); RED CELL DISTRIBUTION WIDTH 13.2 % (11.5-14.5); WHITE BLOOD COUNT 7.6 X10'3 (4.5-11.0)
[2019-02-14 17:10] LABS: ALANINE AMINOTRANSFERASE 56 U/L (12-78); ALBUMIN 3.3 G/DL (3.4-5.0); ALBUMIN/GLOBULIN RATIO 1.1 (1.1-1.5); ALKALINE PHOSPHATASE 93 IU/L (46-116); ANION GAP 13 (8-16); ASPARTATE AMINO TRANSFERASE 62 U/L (10-37); BILIRUBIN,TOTAL 0.5 MG/DL (0.1-1.0); BLOOD UREA NITROGEN 5 MG/DL (7-18); BUN/CREATININE RATIO 6.3 (5.4-32.0); CALCIUM 7.5 MG/DL (8.5-10.1); CHLORIDE 103 MMOL/L (99-107); CREATININE 0.79 MG/DL (0.60-1.10); GLUCOSE 90 MG/DL (70-104); POTASSIUM 3.4 MMOL/L (3.5-5.1); SODIUM 139 MMOL/L (135-145); TOTAL CARBON DIOXIDE 23.2 MMOL/L (24-32); TOTAL PROTEIN 6.3 G/DL (6.4-8.2); eGFR > 90 ML/MIN
[2019-02-14 17:18] LABS: ETHANOL 0.357 GM/DL (0.0-0.010)
[2019-02-14] MEDS ORDERED: levetiracetam inj 500 MG in normal saline 100ml IV soln 95 ML IV STA (18:08)
[2019-02-14] MEDS ORDERED: normal saline 1000ML IV soln IVB ONE (18:10)
[2019-02-14] MEDS ORDERED: Levetiracetam-NS 500mg/100ml 100 ML IV STA (18:11)
[2019-02-14 19:55] VITALS: BP 150/75
== END 2019-02-14 20:01 | disposition home or self-care (01) ==
LOC: ER 16:03
DX: F10.129 Alcohol abuse with intoxication, unspecified (principal); I10 Essential (primary) hypertension; R41.82 Altered mental status, unspecified; Z86.14 Personal history of Methicillin resistant Staphylococcus aureus infection; Z56.0 Unemployment, unspecified; Z98.890 Other specified postprocedural states; Z79.899 Other long term (current) drug therapy; Y90.9 Presence of alcohol in blood, level not specified
CPT/HCPCS: 36415; 71045; 80053; 80177; 80320; 85025; 93005; 96374; 99284; J1953; J7030